=== PATIENT | female | born 1970 | race Caucasian/White ===

== ENCOUNTER 2024-04-11 00:57 | Emergency (ER) | payer BC, OTHER ==
[~2024-04-11] VITALS: Ht 167.6 cm; Wt 87.1 kg
[2024-04-11 01:31] VITALS: TEMP 98
[2024-04-11 02:04] LABS: BASOPHILS % 0.6 % (0.0-1.0); EOSINOPHILS # (AUTO) 0.2 (0.0-0.4); EOSINOPHILS % 2.8 % (0.0-6.0); HEMATOCRIT 36.9 % (34.2-44.1); HEMOGLOBIN 11.5 g/dL (12.0-16.0); LYMPHOCYTES # (AUTO) 1.9 (1.0-3.2); LYMPHOCYTES % 26.5 % (18.0-39.1); MEAN CORPUSCULAR HEMOGLOBIN 29.4 pg (28-32); MEAN CORPUSCULAR HGB CONC 31.2 g/dL (31-35); MEAN CORPUSCULAR VOLUME 94.4 fL (81-99); MONOCYTES # (AUTO) 0.8 (0.2-0.8); MONOCYTES % 11.1 % (4.4-11.3); NEUTROPHILS # (AUTO) 4.1 (2.1-6.9); NEUTROPHILS % 58.7 % (38.7-80.0); PLATELET COUNT 276 x10e3/uL (140-360); RED BLOOD COUNT 3.91 x10e6/uL (3.6-5.1); RED CELL DISTRIBUTION WIDTH 13.4 % (11.7-14.4); WHITE BLOOD COUNT 7.02 x10e3/uL (4.8-10.8)
[2024-04-11 02:08] LABS: BILIRUBIN,URINE NEGATIVE (NEGATIVE); CLARITY,URINE CLEAR (CLEAR); COLOR,URINE YELLOW (YELLOW); GLUCOSE, URINE NEGATIVE (NEGATIVE); KETONES,URINE TRACE (NEGATIVE); LEUKOCYTE ESTERASE ,URINE NEGATIVE (NEGATIVE); NITRITE,URINE NEGATIVE (NEGATIVE); PH,URINE 5.5 (5 - 7); PROTEIN,URINE DIPSTICK NEGATIVE (NEGATIVE); URINE UROBILINOGEN 0.2 mg/dL (0.2 - 1)
[2024-04-11] MEDS: KETOROLAC TROMETHAMINE 30 MG/ML VIAL IV STA (02:08)
[2024-04-11 02:16] LABS: ALBUMIN/GLOBULIN RATIO 1.4 (0.8-2.0); ANION GAP 14.8 mmol/L (8-16); CREATININE, SERUM 0.72 mg/dL (0.57-1.11); POTASSIUM 3.8 mmol/L (3.5-5.1); TOTAL PROTEIN 6.9 g/dL (6.5-8.1)
[2024-04-11 02:17] LABS: BACTERIA,URINE MODERATE /HPF; EPITHELIAL CELLS,URINE MODERATE /LPF; MUCUS,URINE FEW (RARE)
[2024-04-11] MEDS ORDERED: IOPAMIDOL 370 MG/ML 100 ML INFUS..BTL INJ ONE (02:26)
[2024-04-11 02:29] LABS: BILIRUBIN,TOTAL 0.3 mg/dL (0.2-1.2)
[2024-04-11] MEDS: Morphine 4mg INJECTION 4 MG/ML INJ IV ONE (03:02)
[2024-04-11] MEDS: ONDANSETRON HCL INJ 2MG/ML 2ML 2 MG/ML VIAL IV STA (03:02)
[2024-04-11 03:05] VITALS: PULSE 66; RESP 16; O2SAT 96
[2024-04-11] MEDS ORDERED: PYRIDIUM200 MG PO (03:19)
[2024-04-11] MEDS ORDERED: CEFDINIR300 MG PO (03:19)
== END 2024-04-11 03:30 | disposition home or self-care (01) ==
LOC: ER 01:05
DX: R10.31 Right lower quadrant pain (principal); N39.0 Urinary tract infection, site not specified; K59.00 Constipation, unspecified; I10 Essential (primary) hypertension; Z87.442 Personal history of urinary calculi; Z98.84 Bariatric surgery status
CPT/HCPCS: 36415; 74177; 80053; 81001; 85025; 99284; J1885; J2270; J2405; Q9967